=== PATIENT | female | born 1950 | race African-American/Black ===

== ENCOUNTER → 2020-06-02 | Outpatient (CLI) | payer MEDICARE, MEDICAID | END | disposition home or self-care (01) | LOC: LAB 12:57 | PROVIDERS: ATTEND Obstetrics & Gynecology | DX: Z01.812 Encounter for preprocedural laboratory examination (principal); Z20.828 Contact with and (suspected) exposure to other viral communicable diseases | CPT/HCPCS: C9803; U0003 ==

== ENCOUNTER 2020-06-04 07:57 | Day surgery (SDC) | payer MEDICARE, MEDICAID ==
[~2020-06-04] VITALS: Ht 162.6 cm; Wt 63.0 kg
[2020-06-04] MEDS ORDERED: SODIUM CHLORIDE 0.9% 1,000 ML IV SCH (09:00)
[2020-06-04 09:06] LABS: BASOPHILS % 0.6 % (0.0-2.0); EOSINOPHILS % 2.3 % (0.0-5.0); HEMATOCRIT. 30.6 % (36.0-48.0); HEMOGLOBIN. 10.1 g/dL (12.0-16.0); LYMPHOCYTES % 33.3 % (20.0-50.0); MEAN CORPUSCULAR HEMOGLOBIN 28.3 pg (28.0-32.0); MEAN CORPUSCULAR VOLUME 85.8 fL (81.0-99.0); MEAN PLATELET VOLUME 8.1 fl (7.4-10.4); MONOCYTES % 10.1 % (2.0-8.0); NEUTROPHILS % 53.7 % (40.0-76.0); PLATELET 202 x1000/uL (130-400); RED BLOOD CELL COUNT 3.56 mill/uL (4.2-5.4); RED CELL DISTRIBUTION WIDTH 15.5 % (11.6-14.6)
[2020-06-04 09:11] LABS: CHLORIDE 110 mEq/L (98-107)
[2020-06-04 09:15] LABS: PROTHROMBIN TIME 10.6 sec (9.6-11.0)
[2020-06-04 11:05] LABS: CLARITY URINE CLEAR (CLEAR); COLOR URINE YELLOW (YELLOW); KETONES URINE NEGATIVE (NEGATIVE); LEUKOCYTE ESTERASE URINE TRACE (NEGATIVE); NITRITE URINE NEGATIVE (NEGATIVE); OCCULT BLOOD URINE NEGATIVE (NEGATIVE); PH URINE 5.5 (4.5-8.0); PROTEIN URINE NEGATIVE (NEGATIVE); SPECIFIC GRAVITY URINE 1.015 (1.005-1.030); UROBILINOGEN URINE 0.2 E.U./dL (0.2-1.0)
[2020-06-04] MEDS ORDERED: LOSA100T32 PO (13:09)
[2020-06-04] MEDS ORDERED: CILO50TA PO (13:09)
[2020-06-04] MEDS ORDERED: ALPH50CA PO (13:09)
[2020-06-04] MEDS ORDERED: METF-416 PO (13:09)
[2020-06-04] MEDS ORDERED: ATOR20TA65 PO (13:09)
[2020-06-04] MEDS ORDERED: SITA100T11 PO (13:09)
[2020-06-04] MEDS ORDERED: AMLO10TA80 PO (13:09)
[2020-06-04] MEDS ORDERED: DONE10TA43 PO (13:09)
[2020-06-04] MEDS ORDERED: MIRT7.5T11 PO (13:09)
[2020-06-04] MEDS ORDERED: ONDANSETRON HCL 4MG/2ML INJ IV PRN (14:30)
[2020-06-04] MEDS ORDERED: HYDROMORPHONE HCL/PF 2MG/ML CPJ IV PRN (14:30)
[2020-06-04] MEDS ORDERED: HYDRALAZINE 20MG/ML VIAL IV PRN (14:30)
[2020-06-04] MEDS ORDERED: POTASSIUM CHLORIDE 20MEQ TABLET SR PO SCH (16:30)
== END 2020-06-04 17:30 | disposition home or self-care (01) ==
LOC: OR 07:57
PROVIDERS: ATTEND Obstetrics & Gynecology
DX: N95.0 Postmenopausal bleeding (principal); E11.9 Type 2 diabetes mellitus without complications; I10 Essential (primary) hypertension; M19.90 Unspecified osteoarthritis, unspecified site; F41.9 Anxiety disorder, unspecified; Z79.82 Long term (current) use of aspirin; Z79.84 Long term (current) use of oral hypoglycemic drugs; Z79.899 Other long term (current) drug therapy; Z87.891 Personal history of nicotine dependence; Z98.890 Other specified postprocedural states
CPT/HCPCS: 36415; 58558; 80053; 81003; 82962; 85025; 85610; 85730; 86850; 86900; 86901; 93005; J1100; J1885; J2704; J2765

== ENCOUNTER 2024-10-19 21:06 | Emergency (ER) | payer MEDICAID, MEDICARE ==
[~2024-10-19] VITALS: Ht 170.2 cm; Wt 50.0 kg
[~2024-10-19 21:06] MED LIST: ALPH50CA PO; AMLO10TA80 PO; ATOR20TA65 PO; DONE10TA43 PO; LOSA100T33 PO; METF-416 PO; MIRT7.5T11 PO; PLET5 PO; SITA100T11 PO
[2024-10-19] MEDS: ACETAMINOPHEN 325MG TABLET PO ONE (21:30)
[2024-10-19 21:46] VITALS: O2SAT 99
[2024-10-20 00:16] LABS: BASOPHILS % 0.5 % (0.0-2.0); EOSINOPHILS % 0.9 % (0.0-5.0); HEMATOCRIT. 35.8 % (36.0-48.0); HEMOGLOBIN. 11.7 g/dL (12.0-16.0); LYMPHOCYTES % 29.9 % (20.0-50.0); MEAN CORPUSCULAR HEMOGLOBIN 28.9 pg (28.0-32.0); MEAN CORPUSCULAR HGB CONC 32.7 g/dL (31.0-37.0); MEAN CORPUSCULAR VOLUME 88.5 fL (81.0-99.0); MEAN PLATELET VOLUME 8.1 fl (7.4-10.4); MONOCYTES % 6.8 % (2.0-8.0); NEUTROPHILS % 61.9 % (40.0-76.0); PLATELET 188 x1000/uL (130-400); RED BLOOD CELL COUNT 4.05 mill/uL (4.2-5.4); RED CELL DISTRIBUTION WIDTH 15.4 % (11.6-14.6); WHITE BLOOD COUNT 5.1 x1000/uL (4.5-11.0)
[2024-10-20 00:23] LABS: CHLORIDE 103 mEq/L (98-107); POTASSIUM 3.8 mEq/L (3.5-5.1); SODIUM 140 mEq/L (136-145)
[2024-10-20 00:24] LABS: CALCIUM 10.1 mg/dL (8.7-10.4); CARBON DIOXIDE 29 mEq/L (21-32)
[2024-10-20 00:29] LABS: CREATININE 0.9 mg/dL (0.6-1.0); GLUCOSE 259 mg/dL (70-105); UREA NITROGEN BLOOD 16 mg/dL (9-23)
[2024-10-20 00:31] LABS: ACETAMINOPHEN < 2 ug/mL (10-30)
[2024-10-20 00:32] LABS: ETHANOL BLOOD < 10 mg/dL (<10)
[2024-10-20 05:53] LABS: CLARITY URINE CLEAR (CLEAR); COLOR URINE YELLOW (YELLOW); GLUCOSE URINE 2+ (NEGATIVE); KETONES URINE NEGATIVE (NEGATIVE); LEUKOCYTE ESTERASE URINE TRACE (NEGATIVE); NITRITE URINE NEGATIVE (NEGATIVE); OCCULT BLOOD URINE NEGATIVE (NEGATIVE); PH URINE 7.5 (4.5-8.0); PROTEIN URINE 1+ (NEGATIVE); UROBILINOGEN URINE 0.2 E.U./dL (0.2-1.0)
[2024-10-20 06:01] LABS: *AMPHETAMINES SCREEN URINE NEGATIVE (NEGATIVE); *BARBITURATES SCREEN URINE NEGATIVE (NEGATIVE); *BENZODIAZEPINES SCREEN URINE NEGATIVE (NEGATIVE); *COCAINE SCREEN URINE NEGATIVE (NEGATIVE); METHADONE URINE SCREEN NEGATIVE (NEGATIVE); OPIATES URINE SCREEN NEGATIVE (NEGATIVE)
[2024-10-20 06:02] LABS: CANNABINOID URINE SCREEN NEGATIVE (NEGATIVE); ECSTASY MDMA SCREEN URINE NEGATIVE (NEGATIVE); PHENCYCLIDINE URINE SCREEN NEGATIVE (NEGATIVE)
[2024-10-20 07:16] LABS: RBC URINE 0-2 /hpf (0-2); SQUAMOUS EPITHELIAL CELL URINE FEW /lpf (RARE/1+); WBC URINE 0-2 /hpf (0-2)
[2024-10-20 07:17] LABS: BACTERIA URINE NONE SEEN
[2024-10-21] MEDS ORDERED: AMLODIPINE 10MG TABLET PO ONE (11:15)
[2024-10-21] MEDS: AMLODIPINE 5MG TABLET PO NR (11:43)
[2024-10-21 20:33] VITALS: BP 124/43; PULSE 73; RESP 18; TEMP 36.61404; O2SAT 99
[2024-10-21] MEDS: OLANZAPINE 2.5MG TABLET PO SCH (22:01)
== END 2024-10-21 21:15 ==
LOC: ER 21:06
DX: M54.2 Cervicalgia (principal); M54.9 Dorsalgia, unspecified; M25.512 Pain in left shoulder; M79.661 Pain in right lower leg; E11.65 Type 2 diabetes mellitus with hyperglycemia; F20.9 Schizophrenia, unspecified; I10 Essential (primary) hypertension; Z79.899 Other long term (current) drug therapy
CPT/HCPCS: 36415; 72128; 73030; 73590; 80048; 80305; 80307; 80320; 80329; 81003; 85025; 87426; 99285; G0480